=== PATIENT | female | born 1980 | race Two or more races ===

== ENCOUNTER 2018-02-26 08:50 | Outpatient (CLI) | payer OTHER ==
[2018-02-26 09:46] LABS: BASOPHILS % (AUTO) 0.3 % (0-1); EOSINOPHILS # (AUTO) 0.2 X10'3 (0-0.9); EOSINOPHILS % (AUTO) 2.2 % (0-6); LYMPHOCYTES # (AUTO) 1.7 X10'3 (1.1-4.8); MEAN CORPUSCULAR HEMOGLOBIN 29.4 PG (27.0-31.0); MEAN CORPUSCULAR HGB CONC 33.3 % (33.0-36.5); MEAN CORPUSCULAR VOLUME 88.2 FL (78-98); MONOCYTES # (AUTO) 0.4 X10'3 (0-0.9); MONOCYTES % (AUTO) 5.4 % (2-12); NEUTROPHILS # (AUTO) 4.9 X10'3 (1.8-7.7); NEUTROPHILS % (AUTO) 68.1 % (42-75); PLATELET COUNT 340 X10'3 (140-440); RED BLOOD COUNT 4.77 X10'6 (4.20-5.60); RED CELL DISTRIBUTION WIDTH 14.2 % (11.5-14.5); WHITE BLOOD COUNT 7.2 X10'3 (4.5-11.0)
[2018-02-26 10:00] LABS: CLARITY,URINE CLEAR (Clear); COLOR,URINE YELLOW (Yellow); GLUCOSE, URINE NEGATIVE (Neg); KETONES,URINE NEGATIVE (Neg); LEUKOCYTE ESTERASE ,URINE NEGATIVE (Neg); NITRITES, URINE NEGATIVE (Neg); OCCULT BLOOD,URINE NEGATIVE (Neg); PROTEIN,URINE NEGATIVE (Neg); UROBILINOGEN,URINE 0.2 E.U/dL (0.2-1.0)
[2018-02-26 10:10] LABS: ALANINE AMINOTRANSFERASE 22 U/L (12-78); ALBUMIN 3.6 G/DL (3.4-5.0); ALBUMIN/GLOBULIN RATIO 0.9 (1.1-1.5); ALKALINE PHOSPHATASE 46 IU/L (46-116); ANION GAP 9 (8-16); ASPARTATE AMINO TRANSFERASE 17 U/L (10-37); BILIRUBIN,TOTAL 0.4 MG/DL (0.1-1.0); BLOOD UREA NITROGEN 16 MG/DL (7-18); BUN/CREATININE RATIO 25.8 (6.6-38.0); CALCIUM 8.9 MG/DL (8.5-10.1); CHLORIDE 103 MMOL/L (99-107); CHOLESTEROL 178 MG/DL (0-200); CREATININE 0.62 MG/DL (0.40-0.90); GLUCOSE 87 MG/DL (70-104); HDL CHOLESTEROL 60 MG/DL (35-60); LDL CHOLESTEROL 100 MG/DL (50-100); POTASSIUM 3.9 MMOL/L (3.5-5.1); SODIUM 139 MMOL/L (135-145); TOTAL CARBON DIOXIDE 27.2 MMOL/L (24-32); TOTAL PROTEIN 7.7 G/DL (6.4-8.2); TRIGLYCERIDES 75 MG/DL (20-135); eGFR > 90 ML/MIN
[2018-02-26 10:10] LABS: UA COLLECTION TYPE CLN CATCH MIDSTREAM
== END 2018-02-26 23:59 | disposition home or self-care (01) ==
LOC: LAB 08:50
PROVIDERS: ATTEND Family Medicine
DX: R53.83 Other fatigue (principal); Z76.89 Persons encountering health services in other specified circumstances
CPT/HCPCS: 36415; 80053; 80061; 81003; 84439; 84443; 85025

== ENCOUNTER → 2018-08-14 | Outpatient (CLI) | payer OTHER ==
[2018-08-14 08:58] LABS: BASOPHILS # (AUTO) 0.1 X10'3 (0-0.2); EOSINOPHILS # (AUTO) 0.1 X10'3 (0-0.9); HEMOGLOBIN 14.2 g/dl (12.0-16.0); LYMPHOCYTES # (AUTO) 2.2 X10'3 (1.1-4.8); LYMPHOCYTES % (AUTO) 23.7 % (21-51); MEAN CORPUSCULAR HEMOGLOBIN 29.9 PG (27.0-31.0); MEAN CORPUSCULAR HGB CONC 33.9 g/dL (33.0-36.5); MEAN CORPUSCULAR VOLUME 88.2 FL (78-98); MEAN PLATELET VOLUME 7.6 FL (7.4-10.4); MONOCYTES # (AUTO) 0.6 X10'3 (0-0.9); MONOCYTES % (AUTO) 6.7 % (2-12); NEUTROPHILS # (AUTO) 6.3 X10'3 (1.8-7.7); NEUTROPHILS % (AUTO) 67.6 % (42-75); PLATELET COUNT 304 X10'3 (140-440); RED BLOOD COUNT 4.76 X10'6 (4.20-5.60); RED CELL DISTRIBUTION WIDTH 13.8 % (11.5-14.5); WHITE BLOOD COUNT 9.3 X10'3 (4.5-11.0)
[2018-08-14 09:03] LABS: CLARITY,URINE SLIGHTLY CLOUDY (Clear); COLOR,URINE STRAW (Yellow); GLUCOSE, URINE NEGATIVE (Neg); KETONES,URINE NEGATIVE (Neg); LEUKOCYTE ESTERASE ,URINE NEGATIVE (Neg); NITRITES, URINE NEGATIVE (Neg); OCCULT BLOOD,URINE NEGATIVE (Neg); PROTEIN,URINE NEGATIVE (Neg); UROBILINOGEN,URINE 0.2 E.U/dL (0.2-1.0)
[2018-08-14 09:04] LABS: UA COLLECTION TYPE NON-SPECIFIED
[2018-08-14 09:13] LABS: BACTERIA,URINE 1+ /HPF (Neg); MUCUS STRANDS FEW /LPF (Neg); RBC,URINE NONE SEEN /HPF (0-2); SQUAMOUS EPITHELIAL CELL,UR MODERATE /LPF (FEW); WBC,URINE 0-4 /HPF (0-4)
[2018-08-14 09:49] LABS: HIV ANTIBODY 1&2 RAPID NON-REACTIVE (Neg)
[2018-08-14 10:28] LABS: ALANINE AMINOTRANSFERASE 23 U/L (12-78); ALBUMIN 3.5 G/DL (3.4-5.0); ALBUMIN/GLOBULIN RATIO 0.9 (1.1-1.5); ALKALINE PHOSPHATASE 56 IU/L (46-116); ANION GAP 4 (8-16); ASPARTATE AMINO TRANSFERASE 18 U/L (10-37); BILIRUBIN,TOTAL 0.5 MG/DL (0.1-1.0); BLOOD UREA NITROGEN 16 MG/DL (7-18); BUN/CREATININE RATIO 30.8 (6.6-38.0); CALCIUM 8.8 MG/DL (8.5-10.1); CHLORIDE 103 MMOL/L (99-107); CREATININE 0.52 MG/DL (0.40-0.90); GLUCOSE 82 MG/DL (70-104); POTASSIUM 3.9 MMOL/L (3.5-5.1); SODIUM 137 MMOL/L (135-145); TOTAL CARBON DIOXIDE 29.7 MMOL/L (24-32); TOTAL PROTEIN 7.4 G/DL (6.4-8.2); eGFR > 90 ML/MIN
[2018-08-15 08:10] LABS: RUBELLA ANTIBODIES, IGG 1.68 index (Immune >0.99)
[2018-08-15 11:09] LABS: MUMPS ANTIBODIES, IGG 36.3 AU/mL (Immune >10.9); RUBEOLA ANTIBODIES, IGG >300.0 AU/mL (Immune >29.9); VARICELLA-ZOSTER VIRUS AB, IGG 433 index (Immune >165)
[2018-08-15 13:08] LABS: HEPATITIS C ANTIBODY <0.1 s/co ratio (0.0-0.9)
== END | disposition home or self-care (01) ==
LOC: LAB 08:02
PROVIDERS: ATTEND Family Medicine
DX: Z33.1 Pregnant state, incidental (principal)
CPT/HCPCS: 36415; 80053; 81001; 84443; 85025; 86703; 86706; 86735; 86762; 86765; 86803; 86900; 86901; 87491

== ENCOUNTER 2018-08-25 11:32 | Outpatient (CLI) | payer OTHER | END 2018-08-25 23:59 | disposition home or self-care (01) | LOC: LAB 11:32 | PROVIDERS: ATTEND Family Medicine | DX: R93.89 Abnormal findings on diagnostic imaging of other specified body structures (principal) | CPT/HCPCS: 36415; 84702 ==

== ENCOUNTER 2018-08-27 10:18 | Outpatient (CLI) | payer OTHER | END 2018-08-27 23:59 | disposition home or self-care (01) | LOC: LAB 10:18 | PROVIDERS: ATTEND Family Medicine | DX: R93.89 Abnormal findings on diagnostic imaging of other specified body structures (principal) | CPT/HCPCS: 36415; 84702 ==

== ENCOUNTER 2019-01-05 08:20 | Outpatient (CLI) | payer OTHER ==
[2019-01-05 08:48] LABS: BASOPHILS % (AUTO) 0.2 % (0-1); EOSINOPHILS # (AUTO) 0.1 X10'3 (0-0.9); EOSINOPHILS % (AUTO) 0.6 % (0-6); HEMATOCRIT 37.4 % (35.0-45.0); HEMOGLOBIN 12.5 g/dl (12.0-16.0); LYMPHOCYTES # (AUTO) 1.6 X10'3 (1.1-4.8); LYMPHOCYTES % (AUTO) 14.3 % (21-51); MEAN CORPUSCULAR HEMOGLOBIN 30.8 PG (27.0-31.0); MEAN CORPUSCULAR HGB CONC 33.5 g/dL (33.0-36.5); MEAN CORPUSCULAR VOLUME 91.8 FL (78-98); MEAN PLATELET VOLUME 7.6 FL (7.4-10.4); MONOCYTES # (AUTO) 0.9 X10'3 (0-0.9); MONOCYTES % (AUTO) 8.3 % (2-12); NEUTROPHILS # (AUTO) 8.5 X10'3 (1.8-7.7); NEUTROPHILS % (AUTO) 76.6 % (42-75); PLATELET COUNT 273 X10'3 (140-440); RED BLOOD COUNT 4.08 X10'6 (4.20-5.60); RED CELL DISTRIBUTION WIDTH 13.1 % (11.5-14.5); WHITE BLOOD COUNT 11.1 X10'3 (4.5-11.0)
== END 2019-01-05 23:59 | disposition home or self-care (01) ==
LOC: LAB 08:20
PROVIDERS: ATTEND Specialist
DX: O24.419 Gestational diabetes mellitus in pregnancy, unspecified control (principal)
CPT/HCPCS: 36415; 82947; 82950; 85025

== ENCOUNTER 2019-01-19 08:16 | Outpatient (CLI) | payer OTHER ==
[2019-01-19 09:01] LABS: BASOPHILS # (AUTO) 0.1 X10'3 (0-0.2); BASOPHILS % (AUTO) 0.7 % (0-1); EOSINOPHILS # (AUTO) 0.1 X10'3 (0-0.9); EOSINOPHILS % (AUTO) 0.6 % (0-6); GLUCOSE,FASTING GESTATIONAL 84 MG/DL (51-92); HEMATOCRIT 39.6 % (35.0-45.0); HEMOGLOBIN 13.3 g/dl (12.0-16.0); LYMPHOCYTES # (AUTO) 1.9 X10'3 (1.1-4.8); LYMPHOCYTES % (AUTO) 16.7 % (21-51); MEAN CORPUSCULAR HEMOGLOBIN 30.8 PG (27.0-31.0); MEAN CORPUSCULAR HGB CONC 33.7 g/dL (33.0-36.5); MEAN CORPUSCULAR VOLUME 91.3 FL (78-98); MEAN PLATELET VOLUME 7.1 FL (7.4-10.4); MONOCYTES # (AUTO) 0.7 X10'3 (0-0.9); MONOCYTES % (AUTO) 6.5 % (2-12); NEUTROPHILS # (AUTO) 8.3 X10'3 (1.8-7.7); NEUTROPHILS % (AUTO) 75.5 % (42-75); PLATELET COUNT 301 X10'3 (140-440); RED BLOOD COUNT 4.34 X10'6 (4.20-5.60); RED CELL DISTRIBUTION WIDTH 13.5 % (11.5-14.5); WHITE BLOOD COUNT 11.1 X10'3 (4.5-11.0)
[2019-01-19 10:41] LABS: GLUCOSE 1 HOUR 187 MG/DL
== END 2019-01-19 23:59 | disposition home or self-care (01) ==
LOC: LAB 08:16
PROVIDERS: ATTEND Specialist
DX: O24.419 Gestational diabetes mellitus in pregnancy, unspecified control (principal); Z3A.00 Weeks of gestation of pregnancy not specified
CPT/HCPCS: 36415; 82947; 85025

== ENCOUNTER 2019-02-15 09:41 | Outpatient (CLI) | payer OTHER | END 2019-02-15 23:59 | disposition home or self-care (01) | LOC: LAB 09:41 | PROVIDERS: ATTEND Specialist | DX: O24.419 Gestational diabetes mellitus in pregnancy, unspecified control (principal) | CPT/HCPCS: 36415; 82947; 82952 ==

== ENCOUNTER 2019-11-13 14:52 | Emergency (ER) | payer BC, OTHER ==
[~2019-11-13] VITALS: Ht 160 cm; Wt 76.8 kg
--- NOTE | 2019-11-13 15:09 | NUR ---
EDMD Pablo at bedside, states stroke alert not necessary at this time based on pt's symptoms.
[2019-11-13] MEDS ORDERED: ACYC-202 PO (15:14)
[2019-11-13] MEDS ORDERED: PRED20TA PO (15:14)
[2019-11-13 15:23] VITALS: BP 141/81
== END 2019-11-13 15:24 | disposition home or self-care (01) ==
LOC: ER 14:52
DX: G51.0 Bell's palsy (principal); Z88.1 Allergy status to other antibiotic agents; Z79.899 Other long term (current) drug therapy
CPT/HCPCS: 99283

== ENCOUNTER 2020-02-11 09:47 | Emergency (ER) | payer OTHER, BC ==
[2020-02-11 11:30] VITALS: BP 131/80
== END 2020-02-11 11:33 | disposition home or self-care (01) ==
LOC: ER 09:47 → EEVIPCON 09:47 → ER 11:33
DX: R05 Cough (principal); M79.18 Myalgia, other site; R68.83 Chills (without fever); Z20.828 Contact with and (suspected) exposure to other viral communicable diseases
CPT/HCPCS: 99281

== ENCOUNTER 2020-09-07 08:07 | Outpatient (CLI) | payer BC ==
[2020-09-07 08:54] LABS: CLARITY,URINE CLOUDY (Clear); COLOR,URINE YELLOW (Yellow); GLUCOSE, URINE NEGATIVE (Neg); KETONES,URINE NEGATIVE (Neg); LEUKOCYTE ESTERASE ,URINE NEGATIVE (Neg); NITRITES, URINE NEGATIVE (Neg); OCCULT BLOOD,URINE NEGATIVE (Neg); PROTEIN,URINE NEGATIVE (Neg)
[2020-09-07 09:22] LABS: UA COLLECTION TYPE CLN CATCH MIDSTREAM
[2020-09-07 09:23] LABS: MUCUS STRANDS MANY /LPF (Neg); SQUAMOUS EPITHELIAL CELL,UR MANY /LPF (FEW)
[2020-09-07 09:24] LABS: BACTERIA,URINE 1+ /HPF (Neg); RBC,URINE 0-2 /HPF (0-2); WBC,URINE 0-4 /HPF (0-4)
[2020-09-07 09:33] LABS: ALANINE AMINOTRANSFERASE 14 U/L (12-78); ALBUMIN 3.7 G/DL (3.4-5.0); ALBUMIN/GLOBULIN RATIO 0.9 (1.1-1.5); ALKALINE PHOSPHATASE 62 IU/L (46-116); ANION GAP 9 (8-16); BILIRUBIN,TOTAL 0.8 MG/DL (0.1-1.0); BLOOD UREA NITROGEN 17 MG/DL (7-18); BUN/CREATININE RATIO 32.1 (6.6-38.0); CALCIUM 8.8 MG/DL (8.5-10.1); CHLORIDE 105 MMOL/L (99-107); CHOL/HDL RATIO 3.2 (0.00-4.99); CHOLESTEROL 207 MG/DL (0-200); CREATININE 0.53 MG/DL (0.40-0.90); GLUCOSE 91 MG/DL (70-104); HDL CHOLESTEROL 65 MG/DL (35-60); LDL CHOLESTEROL 117 MG/DL (50-100); SODIUM 140 MMOL/L (135-145); TOTAL CARBON DIOXIDE 26.2 MMOL/L (24-32); TOTAL PROTEIN 7.8 G/DL (6.4-8.2); TRIGLYCERIDES 80 MG/DL (20-135); eGFR > 90 ML/MIN
[2020-09-07 09:38] LABS: ASPARTATE AMINO TRANSFERASE 24 U/L (10-37); POTASSIUM 4.4 MMOL/L (3.5-5.1)
[2020-09-08 08:22] LABS: BASOPHILS % (AUTO) 0.5 % (0-1); EOSINOPHILS # (AUTO) 0.1 X10'3 (0-0.9); EOSINOPHILS % (AUTO) 0.9 % (0-6); HEMATOCRIT 43.9 % (35.0-45.0); HEMOGLOBIN 14.5 g/dl (12.0-16.0); LYMPHOCYTES % (AUTO) 27.4 % (21-51); MEAN CORPUSCULAR HEMOGLOBIN 30.1 PG (27.0-31.0); MEAN CORPUSCULAR HGB CONC 33.1 g/dL (33.0-36.5); MEAN CORPUSCULAR VOLUME 90.8 FL (78-98); MONOCYTES # (AUTO) 0.7 X10'3 (0-0.9); MONOCYTES % (AUTO) 9.9 % (2-12); NEUTROPHILS # (AUTO) 4.5 X10'3 (1.8-7.7); NEUTROPHILS % (AUTO) 61.3 % (42-75); PLATELET COUNT 319 X10'3 (140-440); RED BLOOD COUNT 4.84 X10'6 (4.20-5.60); WHITE BLOOD COUNT 7.3 X10'3 (4.5-11.0)
== END 2020-09-07 23:59 | disposition home or self-care (01) ==
LOC: LAB 08:07
PROVIDERS: ATTEND Family Medicine
DX: Z00.01 Encounter for general adult medical examination with abnormal findings (principal)
CPT/HCPCS: 36415; 80053; 80061; 81001; 83036; 84439; 84443; 85025

== ENCOUNTER 2021-10-26 09:57 | Outpatient (CLI) | payer BC ==
[2021-10-26 10:48] LABS: BASOPHILS % (AUTO) 0.5 % (0-1); EOSINOPHILS # (AUTO) 0.1 X10'3 (0-0.9); EOSINOPHILS % (AUTO) 1.1 % (0-6); HEMOGLOBIN 15.1 g/dl (12.0-16.0); LYMPHOCYTES # (AUTO) 2.3 X10'3 (1.1-4.8); LYMPHOCYTES % (AUTO) 33.4 % (21-51); MEAN CORPUSCULAR HEMOGLOBIN 29.2 PG (27.0-31.0); MEAN CORPUSCULAR HGB CONC 32.8 g/dL (33.0-36.5); MEAN CORPUSCULAR VOLUME 89.1 FL (78-98); MEAN PLATELET VOLUME 7.2 FL (7.4-10.4); MONOCYTES # (AUTO) 0.4 X10'3 (0-0.9); MONOCYTES % (AUTO) 6.5 % (2-12); NEUTROPHILS % (AUTO) 58.5 % (42-75); PLATELET COUNT 341 X10'3 (140-440); RED BLOOD COUNT 5.17 X10'6 (4.20-5.60); RED CELL DISTRIBUTION WIDTH 14.1 % (11.5-14.5); WHITE BLOOD COUNT 6.8 X10'3 (4.5-11.0)
[2021-10-26 10:54] LABS: HEMOGLOBIN A1C 5.8 % (4.5-6.2)
[2021-10-26 10:55] LABS: ALANINE AMINOTRANSFERASE 22 U/L (12-78); ALBUMIN 3.9 G/DL (3.4-5.0); ALBUMIN/GLOBULIN RATIO 0.8 (1.1-1.5); ALKALINE PHOSPHATASE 73 IU/L (46-116); ANION GAP 7 (8-16); ASPARTATE AMINO TRANSFERASE 19 U/L (10-37); BILIRUBIN,TOTAL 0.4 MG/DL (0.1-1.0); BLOOD UREA NITROGEN 21 MG/DL (7-18); BUN/CREATININE RATIO 31.3 (6.6-38.0); CALCIUM 8.7 MG/DL (8.5-10.1); CHLORIDE 103 MMOL/L (99-107); CHOL/HDL RATIO 3.2 (0.00-4.99); CHOLESTEROL 230 MG/DL (0-200); CREATININE 0.67 MG/DL (0.40-0.90); GLUCOSE 128 MG/DL (70-104); HDL CHOLESTEROL 73 MG/DL (35-60); LDL CHOLESTEROL 131 MG/DL (50-100); POTASSIUM 3.7 MMOL/L (3.5-5.1); SODIUM 140 MMOL/L (135-145); TOTAL CARBON DIOXIDE 29.7 MMOL/L (24-32); TOTAL PROTEIN 8.5 G/DL (6.4-8.2); TRIGLYCERIDES 93 MG/DL (20-135); eGFR > 90 ML/MIN
[2021-10-26 11:16] LABS: CLARITY,URINE SLIGHTLY CLOUDY (Clear); COLOR,URINE YELLOW (Yellow); GLUCOSE, URINE NEGATIVE (Neg); KETONES,URINE NEGATIVE (Neg); LEUKOCYTE ESTERASE ,URINE NEGATIVE (Neg); NITRITES, URINE NEGATIVE (Neg); OCCULT BLOOD,URINE NEGATIVE (Neg); PROTEIN,URINE NEGATIVE (Neg); UROBILINOGEN,URINE 0.2 E.U/dL (0.2-1.0)
[2021-10-26 11:48] LABS: UA COLLECTION TYPE CLN CATCH MIDSTREAM
[2021-10-26 11:49] LABS: MUCUS STRANDS FEW /LPF (Neg); SQUAMOUS EPITHELIAL CELL,UR MODERATE /LPF (FEW)
[2021-10-26 11:50] LABS: BACTERIA,URINE 1+ /HPF (Neg); RBC,URINE 0-2 /HPF (0-2); WBC,URINE 0-4 /HPF (0-4)
== END 2021-10-26 23:59 | disposition home or self-care (01) ==
LOC: LAB 09:57
PROVIDERS: ATTEND Physician Assistant
DX: O24.419 Gestational diabetes mellitus in pregnancy, unspecified control (principal); Z00.00 Encounter for general adult medical examination without abnormal findings; Z11.1 Encounter for screening for respiratory tuberculosis; E78.5 Hyperlipidemia, unspecified
CPT/HCPCS: 36415; 71046; 80053; 80061; 81001; 83036; 85025

== ENCOUNTER 2022-06-10 07:11 | Emergency (ER) | payer BC, OTHER ==
[~2022-06-10] VITALS: Ht 160 cm; Wt 74.1 kg
[2022-06-10 08:41] VITALS: BP 128/76
[2022-06-10] MEDS ORDERED: CYCL-1 PO (18:04)
[2022-06-10] MEDS ORDERED: IBUP-1984 PO (18:04)
== END 2022-06-10 09:43 | disposition home or self-care (01) ==
LOC: ER 07:11
DX: S61.231A Puncture wound without foreign body of left index finger without damage to nail, initial encounter (principal); Z88.1 Allergy status to other antibiotic agents; Z79.899 Other long term (current) drug therapy; W46.0XXA Contact with hypodermic needle, initial encounter; Y93.89 Activity, other specified; Y92.89 Other specified places as the place of occurrence of the external cause; Y99.8 Other external cause status
CPT/HCPCS: 99281

== ENCOUNTER 2022-06-10 16:15 | Emergency (ER) | payer BC, OTHER ==
[~2022-06-10] VITALS: Ht 160 cm; Wt 74.1 kg
[2022-06-10 17:06] VITALS: BP 137/82
[2022-06-10] MEDS ORDERED: ketorolac tromethamine 15mg/ml inj. IM ONE (17:30)
[2022-06-10] MEDS ORDERED: IBUP-1984 PO (18:04)
[2022-06-10] MEDS ORDERED: CYCL-1 PO (18:04)
== END 2022-06-10 18:29 | disposition home or self-care (01) ==
LOC: ER 16:16
DX: S46.011A Strain of muscle(s) and tendon(s) of the rotator cuff of right shoulder, initial encounter (principal); Z88.1 Allergy status to other antibiotic agents; X58.XXXA Exposure to other specified factors, initial encounter; Y93.89 Activity, other specified; Y92.89 Other specified places as the place of occurrence of the external cause; Y99.8 Other external cause status
CPT/HCPCS: 73030; 96372; 99283; J1885

== ENCOUNTER 2022-09-29 20:15 | Emergency (ER) | payer BC, OTHER ==
[~2022-09-29] VITALS: Ht 157.5 cm; Wt 73.6 kg
[~2022-09-29 20:15] MED LIST: CYCL-1 PO
[2022-09-29 20:24] VITALS: BP 142/79
[2022-09-29 20:44] LABS: URINE HCG NEGATIVE (NEG)
[2022-09-29 20:45] LABS: CLARITY,URINE SLIGHTLY CLOUDY (Clear); COLOR,URINE YELLOW (Yellow); GLUCOSE, URINE NEGATIVE (Neg); KETONES,URINE NEGATIVE (Neg); LEUKOCYTE ESTERASE ,URINE NEGATIVE (Neg); NITRITES, URINE NEGATIVE (Neg); OCCULT BLOOD,URINE MODERATE (Neg); PROTEIN,URINE NEGATIVE (Neg); UROBILINOGEN,URINE 0.2 E.U/dL (0.2-1.0)
[2022-09-29 20:55] LABS: UA COLLECTION TYPE NON-SPECIFIED
[2022-09-29 20:56] LABS: WBC,URINE 0-4 /HPF (0-4)
[2022-09-29 20:57] LABS: BACTERIA,URINE FEW /HPF (Neg); SQUAMOUS EPITHELIAL CELL,UR MODERATE /LPF (FEW)
[2022-09-29 21:01] LABS: BASOPHILS % (AUTO) 0.4 % (0-1); EOSINOPHILS # (AUTO) 0.1 X10'3 (0-0.9); EOSINOPHILS % (AUTO) 1.2 % (0-6); HEMATOCRIT 41.5 % (35.0-45.0); HEMOGLOBIN 13.8 g/dl (12.0-16.0); LYMPHOCYTES # (AUTO) 1.7 X10'3 (1.1-4.8); LYMPHOCYTES % (AUTO) 31.2 % (21-51); MEAN CORPUSCULAR HEMOGLOBIN 29.3 PG (27.0-31.0); MEAN CORPUSCULAR HGB CONC 33.2 g/dL (33.0-36.5); MEAN CORPUSCULAR VOLUME 88.4 FL (78-98); MEAN PLATELET VOLUME 7.1 FL (7.4-10.4); MONOCYTES # (AUTO) 0.8 X10'3 (0-0.9); MONOCYTES % (AUTO) 15.2 % (2-12); NEUTROPHILS # (AUTO) 2.8 X10'3 (1.8-7.7); PLATELET COUNT 252 X10'3 (140-440); RED BLOOD COUNT 4.69 X10'6 (4.20-5.60); RED CELL DISTRIBUTION WIDTH 14.2 % (11.5-14.5); WHITE BLOOD COUNT 5.3 X10'3 (4.5-11.0)
[2022-09-29 21:07] LABS: ALANINE AMINOTRANSFERASE 24 U/L (12-78); ALBUMIN 3.6 G/DL (3.4-5.0); ALBUMIN/GLOBULIN RATIO 0.9 (1.1-1.5); ALKALINE PHOSPHATASE 69 IU/L (46-116); ANION GAP 5 (8-16); ASPARTATE AMINO TRANSFERASE 15 U/L (10-37); BILIRUBIN,TOTAL 0.3 MG/DL (0.1-1.0); BLOOD UREA NITROGEN 12 MG/DL (7-18); BUN/CREATININE RATIO 15.2 (10.0-20.0); CALCIUM 8.5 MG/DL (8.5-10.1); CHLORIDE 102 MMOL/L (99-107); CREATININE 0.79 MG/DL (0.40-0.90); GLUCOSE 99 MG/DL (70-104); LIPASE 222 U/L (73-393); POTASSIUM 3.7 MMOL/L (3.5-5.1); SODIUM 137 MMOL/L (135-145); TOTAL CARBON DIOXIDE 30.2 MMOL/L (24-32); TOTAL PROTEIN 7.7 G/DL (6.4-8.2); eGFR 80 ML/MIN
[2022-09-29 21:20] LABS: RBC,URINE 20-50 /HPF (0-2)
== END 2022-09-29 23:44 | disposition home or self-care (01) ==
LOC: ER 20:18
DX: R10.11 Right upper quadrant pain (principal); R50.9 Fever, unspecified; R19.7 Diarrhea, unspecified; Z88.1 Allergy status to other antibiotic agents; Z79.899 Other long term (current) drug therapy
CPT/HCPCS: 36415; 76700; 80053; 81001; 81025; 83690; 84484; 85025; 99284

== ENCOUNTER 2022-11-07 08:06 | Outpatient (CLI) | payer BC ==
[2022-11-07 09:34] LABS: BASOPHILS % (AUTO) 0.4 % (0-1); EOSINOPHILS # (AUTO) 0.1 X10'3 (0-0.9); EOSINOPHILS % (AUTO) 1.1 % (0-6); HEMATOCRIT 45.1 % (35.0-45.0); HEMOGLOBIN 14.8 g/dl (12.0-16.0); LYMPHOCYTES # (AUTO) 1.9 X10'3 (1.1-4.8); LYMPHOCYTES % (AUTO) 31.4 % (21-51); MEAN CORPUSCULAR HEMOGLOBIN 29.1 PG (27.0-31.0); MEAN CORPUSCULAR HGB CONC 32.9 g/dL (33.0-36.5); MEAN CORPUSCULAR VOLUME 88.5 FL (78-98); MEAN PLATELET VOLUME 7.1 FL (7.4-10.4); MONOCYTES # (AUTO) 0.5 X10'3 (0-0.9); NEUTROPHILS # (AUTO) 3.6 X10'3 (1.8-7.7); NEUTROPHILS % (AUTO) 58.1 % (42-75); PLATELET COUNT 321 X10'3 (140-440); RED BLOOD COUNT 5.09 X10'6 (4.20-5.60); RED CELL DISTRIBUTION WIDTH 14.8 % (11.5-14.5); WHITE BLOOD COUNT 6.1 X10'3 (4.5-11.0)
[2022-11-07 10:02] LABS: ALANINE AMINOTRANSFERASE 20 U/L (12-78); ALBUMIN/GLOBULIN RATIO 0.9 (1.1-1.5); ALKALINE PHOSPHATASE 68 IU/L (46-116); ANION GAP 8 (8-16); ASPARTATE AMINO TRANSFERASE 14 U/L (10-37); BILIRUBIN,TOTAL 0.6 MG/DL (0.1-1.0); BLOOD UREA NITROGEN 19 MG/DL (7-18); BUN/CREATININE RATIO 30.6 (10.0-20.0); CALCIUM 9.1 MG/DL (8.5-10.1); CHLORIDE 100 MMOL/L (99-107); CHOLESTEROL 223 MG/DL (0-200); CREATININE 0.62 MG/DL (0.40-0.90); FREE T4 (FREE THYROXINE) 1.19 NG/DL (0.73-1.40); GLUCOSE 93 MG/DL (70-104); HDL CHOLESTEROL 74 MG/DL (35-60); LDL CHOLESTEROL 119 MG/DL (50-100); SODIUM 136 MMOL/L (135-145); TOTAL CARBON DIOXIDE 27.6 MMOL/L (24-32); TOTAL PROTEIN 8.5 G/DL (6.4-8.2); TRIGLYCERIDES 66 MG/DL (20-135); eGFR > 90 ML/MIN
[2022-11-07 10:59] LABS: THYROID STIMULATING HORMONE 1.01 ulU/ml (0.34-4.50)
[2022-11-07 11:43] LABS: HEMOGLOBIN A1C 5.4 % (4.5-6.2)
[2022-11-08 11:15] LABS: CREATININE, URINE 44.6 mg/dL (Not Estab.); MICROALB/CRT, RATIO <7 mg/g creat (0-29); MICROALBUMIN,U,RANDOM <3.0 ug/mL (Not Estab.)
== END 2022-11-07 23:59 | disposition home or self-care (01) ==
LOC: LAB 08:06
PROVIDERS: ATTEND Physician Assistant
DX: Z00.01 Encounter for general adult medical examination with abnormal findings (principal); E78.5 Hyperlipidemia, unspecified; R53.83 Other fatigue; R73.01 Impaired fasting glucose
CPT/HCPCS: 36415; 80053; 80061; 82043; 82570; 83036; 84439; 84443; 85025

== ENCOUNTER 2023-01-30 10:54 | Outpatient (CLI) | payer OTHER | END 2023-01-30 23:59 | disposition home or self-care (01) | LOC: LAB 10:54 | PROVIDERS: ATTEND Internal Medicine Infectious Disease | DX: Z02.1 Encounter for pre-employment examination (principal) | CPT/HCPCS: 36415; 86480 ==